=== PATIENT | male | born 1985 | race Caucasian/White ===

== ENCOUNTER 2017-09-25 14:33 | Emergency (ER) | payer OTHER, SELFPAY ==
[2017-09-25 14:34] VITALS: BP 127/85; PULSE 111; RESP 18; TEMP 36.7; O2SAT 98; BMI 24.3
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
[2017-09-25 17:13] VITALS: BP 124/80; PULSE 72; RESP 18; TEMP 36.7; O2SAT 98
== END 2017-09-25 17:13 | disposition home or self-care (01) ==
PROVIDERS: Emergency Provider Emergency Medicine
DX: S29.019A Strain of muscle and tendon of unspecified wall of thorax, initial encounter (principal); V87.7XXA Person injured in collision between other specified motor vehicles (traffic), initial encounter; R59.0 Localized enlarged lymph nodes
CPT/HCPCS: 72125; 72128; 99282